=== PATIENT | female | born 2000 | race Caucasian/White ===

== ENCOUNTER → 2020-11-14 14:18 | Outpatient (CLI) | payer OTHER, SELFPAY ==
[2020-11-14 15:50] LABS: HCG,Quantitative 117 mIU/ml (0-5.42)
== END ==
PROVIDERS: Visit Provider Obstetrics & Gynecology
DX: Z32.00 Encounter for pregnancy test, result unknown (principal)
CPT/HCPCS: 36415; 84702

== ENCOUNTER → 2020-11-17 15:34 | Outpatient (CLI) | payer OTHER, SELFPAY ==
[2020-11-17 17:30] LABS: HCG,Quantitative 613 mIU/ml (0-5.42)
== END ==
PROVIDERS: Visit Provider Obstetrics & Gynecology
DX: Z32.00 Encounter for pregnancy test, result unknown (principal)
CPT/HCPCS: 36415; 84702

== ENCOUNTER → 2020-11-28 12:38 | Outpatient (CLI) | payer OTHER, SELFPAY ==
--- NOTE | 2020-11-28 12:44 | US_ITS ---
PROCEDURE: US OB <= 14 WEEKS FETUS CLINICAL INDICATION: US Dates Early Ob ultrasound, evaluate age COMPARISON: No exams were available for comparison FINDINGS: An intrauterine gestational sac is present with a pole with a crown-rump length of 0.32 cm correlating to gestational age of 6 weeks 0 days. heart tones are present with an FHR of 1 L1 BPM. Yolk sac is noted. Unremarkable adnexa IMPRESSION: Live IUP with an average ultrasound age of 6 weeks 0 days Estimated due date by Ultrasound is 07/24/2021 Dictated by: Nick Yin MD 11/29/2020 06:43 Nick Yin MD in [facility] 11/29/2020 06:43
[2020-11-28 14:48] LABS: Basophils % 0.3 % (0.1-2.0); Eosinophils # 0.1 K/mm3 (0.0-0.4); Eosinophils % 1.1 % (0.1-12.0); Hematocrit 40.5 % (37.0-47.0); Hemoglobin 13.8 g/dL (12.2-16.2); Lymphocytes % 20.5 % (10-50); Mean Corpuscular HGB Conc 34.2 g/dL (31.8-35.4); Mean Corpuscular Hemoglobin 29.9 pg (27.0-31.2); Mean Corpuscular Volume 87.5 fl (81-99); Mean Platelet Volume 7.4 fl (7.4-10.4); Monocytes # 0.7 K/mm3 (0.1-1.0); Neutrophils % 71.1 % (37.0-80.0); Platelet Count 349 K/mm3 (142-424); Red Blood Count 4.62 M/mm3 (4.20-5.40); Red Cell Distribution Width 12.7 % (11.5-17.5); White Blood Count 9.8 K/mm3 (4.8-10.8)
[2020-11-29 10:29] LABS: Rapid Plasma Reagin Ab Titer Non Reactive (NonRea<1:1)
[2020-11-29 11:24] LABS: HIV Screen 4th Generation wRfx Non Reactive (Non Reactive); Hepatitis B Surface Antigen Negative (Negative); Hepatitis C Antibody 0.1 s/co ratio (0.0-0.9)
[2020-12-21 10:07] LABS: Rubella Antibodies, IgG 1.24
== END ==
PROVIDERS: Visit Provider Obstetrics & Gynecology
DX: O26.841 Uterine size-date discrepancy, first trimester (principal)
CPT/HCPCS: 36415; 76801; 85025; 86592; 86703; 86762; 86850; 87340; 87380; G0432

== ENCOUNTER → 2020-11-28 13:35 | Outpatient (CLI) | payer OTHER, SELFPAY | PROVIDERS: Visit Provider Obstetrics & Gynecology | DX: Z34.90 Encounter for supervision of normal pregnancy, unspecified, unspecified trimester (principal) | CPT/HCPCS: 36415; 85025; 86592; 86703; 86762; 86850; 87340; 87380; G0432 ==

== ENCOUNTER → 2020-12-26 12:45 | Outpatient (CLI) | payer OTHER, SELFPAY | PROVIDERS: Visit Provider Obstetrics & Gynecology | DX: Z34.90 Encounter for supervision of normal pregnancy, unspecified, unspecified trimester (principal) | CPT/HCPCS: 36415 ==

== ENCOUNTER 2021-01-11 08:47 | Emergency (ER) | payer OTHER, SELFPAY ==
[2021-01-11 08:47] VITALS: BP 143/91; PULSE 121; RESP 18; TEMP 36.8; O2SAT 99; BMI 28.3
--- NOTE | 2021-01-11 08:52 | [facility].EDNVD ---
ED Disposition Clinical Impression: Nausea and vomiting during UTI (urinary tract infection) Qualifiers: Urinary tract infection type: acute cystitis Hematuria presence: without hematuria Qualified Code(s): N30.00 - Acute cystitis without hematuria Disposition: Home, Self-Care Condition on Discharge: Good Instructions: DI for Diarrhea and Traveler's Diarrhea -- Adult, DI for Diarrhea and Traveler's Diarrhea -- Child, DI for Nausea -- Adult, DI for Nausea -- Child Additional Instructions: Maintain appt w/ OB as scheduled Prescriptions: cephALEXin [cephALEXin 500mg capsule*] 500 mg PO BID 7 Days #14 cap Transmission Status: Pending to [facility] #[id number] Referrals: PCP,No [Primary Care Provider] - 3 days Time of Disposition: 10:24 - Critical Care Critical Care Time: No Attestation: On , the high probability of a clinically significant, sudden or life threatening deterioration of the following system(s) required my full and direct attention, intervention and personal management. The time I documented below is in addition to time spent performing reported procedures but includes the following listed in this critical care notation. Medical Decision Making - Medical Records Medical records reviewed: Yes: I reviewed the patient's medical records. - Igor Inquiry Pt receiving controlled substance: No Vital Signs: 01/11/21 08:47 01/11/21 09:17 01/11/21 09:48 Temperature 98.3 F Temperature Source Oral Pulse Rate 94 H Pulse Rate [Left Radial] 121 H 99 H Respiratory Rate 18 16 Blood Pressure Blood Pressure [Right Arm] 143/91 H 123/71 Blood Pressure Mean Blood Pressure Mean [Right Arm] 108 88 Blood Pressure Source [Right Arm] Automatic Cuff Blood Pressure Position [Right Arm] Sitting 02 Sat by Pulse Oximetry 99 98 100 Oxygen Delivery Method Room Air 01/11/21 10:00 Temperature Temperature Source Pulse Rate 92 H Pulse Rate [Left Radial] Respiratory Rate Blood Pressure 109/68 L Blood Pressure [Right Arm] Blood Pressure Mean 80 Blood Pressure Mean [Right Arm] Blood Pressure Source [Right Arm] Blood Pressure Position [Right Arm] 02 Sat by Pulse Oximetry 100 Oxygen Delivery Method - Lab Data Lab results reviewed: Yes: I reviewed the patient's lab results. Lab Results 01/11/21 08:55: Urine Color Yellow, Urine Appearance Cloudy, Urine pH 6.0, Ur Specific [place] 1.020, Urine Protein Negative, Urine Glucose (UA) Negative, Urine Ketones 2+, Urine Blood 2+, Urine Nitrate Positive, Urine Bilirubin Negative, Urine Urobilinogen 1.0, Ur Leukocyte Esterase 1+ A, Urine RBC 10-20, Urine WBC 5-10, Ur Squamous Epith Cells 3-5, Urine Bacteria Trace Orders (Tests/Meds): ED MEDICATIONS Discontinued Medications Generic Name Dose Route Start Last Admin Trade Name Freq PRN Reason Stop Dose Admin Cephalexin HCl 500 mg 01/11/21 10:18 01/11/21 10:23 Cephalexin 500mg Capsule PO 01/11/21 10:19 500 mg ONCE ONE Administration Protocol Lactated Ringer's 1,000 mls @ 999 mls/hr 01/11/21 09:00 01/11/21 09:07 Lactated Ringer's 1000 Ml Bag IV 01/11/21 10:00 999 mls/hr .Q1H1M DRU Administration ORDERS Category Date Time Status Urine Culture Stat Micro 01/11/21 08:55 Received Medical Decision Narrative: 20yo F G1 evaluated for nausea and vomiting. Patient is in no acute distress on initial evaluation. She is treated with a liter of IV fluids. heart tones were obtained by myself at 135. Patient has been observed in emergency department for an hour and a half without any episodes of vomiting. Attempting to p.o. challenge the patient after her IV fluids have completed and she complains of nausea. On lab evaluation, the patient is found to have a urinary tract infection. She started on antibiotics in the emergency department and a prescription is provided for continued antibiotics. Pt tolerating Dr. Meadows in the ED. She voiced unders
[2021-01-11 09:05] LABS: Microscopic, Urine URINE MICROSCOPIC (MICROSCOPIC)
[2021-01-11 09:07] LABS: Appearance,Urine CLOUDY (Clear); Bilirubin,Urine Negative (Negative); Blood, Urine 2+ (Negative); Color,Urine YELLOW (Yellow); Glucose,Urine (UA) Negative (Negative); Ketones,Urine 2+ (Negative); Leukocyte Esterase,Urine 1+ (Negative); Nitrate,Urine POSITIVE (Negative); Protein,Urine Negative (Negative)
[2021-01-11 09:17] VITALS: BP 123/71; PULSE 99; RESP 16; O2SAT 98
[2021-01-11 09:27] LABS: Bacteria,Urine Trace /lpf
[2021-01-11 09:48] VITALS: PULSE 94; O2SAT 100
[2021-01-11 10:00] VITALS: BP 109/68; PULSE 92; O2SAT 100
[2021-01-11 10:15] VITALS: PULSE 108; O2SAT 99
[2021-01-11 10:30] VITALS: BP 109/68; PULSE 90; RESP 18; TEMP 36.8; O2SAT 98
== END 2021-01-11 10:30 | disposition home or self-care (01) ==
PROVIDERS: Emergency Provider Family Medicine
DX: O23.11 Infections of bladder in pregnancy, first trimester (principal); O21.0 Mild hyperemesis gravidarum; Z3A.12 12 weeks gestation of pregnancy
CPT/HCPCS: 81001; 87086; 87088; 87186; 96365; 99282

== ENCOUNTER → 2021-02-17 10:27 | Outpatient (CLI) | payer OTHER, SELFPAY | PROVIDERS: Visit Provider Obstetrics & Gynecology | DX: Z34.90 Encounter for supervision of normal pregnancy, unspecified, unspecified trimester (principal) | CPT/HCPCS: 87086; 87088; 87186 ==

== ENCOUNTER → 2021-03-06 13:32 | Outpatient (CLI) | payer OTHER, SELFPAY ==
--- NOTE | 2021-03-06 13:35 | US_ITS ---
PROCEDURE: US OB >= 14 WEEKS FETUS CLINICAL INDICATION: OB complete COMPARISON: US US OB <= 14 WEEKS FETUS from 11/28/2020 FINDINGS: Single viable intrauterine gestation. Breech position. Placenta: Anteriorplacenta grade . There is average amount fluid. The cervix appears satisfactory. Closed and measuring 4 centimeters in length. Complete survey performed and was unremarkable on the submitted images as in PACS. No discrete anomalies identified on survey imaging by technologist. Active fetus. Three-vessel cord with satisfactory umbilical cord insertion. There is evidence of gastroschisis noted inferior to the cord insertion. There is herniation of the bowel loops into the amniotic cavity. No evidence of herniation of the solid organs noted. 4- chamber heart noted. Survey of brain & ventricles Unremarkable. Face and neck survey unremarkable. Diaphragm and chest views unremarkable. Abdomen: Both kidneys noted and unremarkable. Stomach noted and satisfactory. Spine: Survey of the spine satisfactory with no anomalies identified nor imaged. Both arms and legs noted. Amniotic Fluid: Adequate. Maternal adnexa: No significant findings. Measurements: Average ultrasound age 19weeks 5days. Gestational Age 19weeks 5days Estimated due date by ultrasound age 0907/26/2021. 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 Single viable intrauterine gestation with gestational age of 19 weeks and 5 days. Dictated by: Isadora Marcus 03/06/2021 15:05 Isadora Marcus in [facility] 03/06/2021 15:05
== END ==
PROVIDERS: Visit Provider Obstetrics & Gynecology
DX: Z34.90 Encounter for supervision of normal pregnancy, unspecified, unspecified trimester (principal)
CPT/HCPCS: 76805